=== PATIENT | female | born 1970 | race Caucasian/White ===

== ENCOUNTER → 2016-06-20 | Outpatient (CLI) | payer OTHER | END | disposition disaster alternative care site (69) | LOC: GBCOE 06-11 16:30 | DX: Z12.31 Encounter for screening mammogram for malignant neoplasm of breast (principal); Z85.3 Personal history of malignant neoplasm of breast; Z90.11 Acquired absence of right breast and nipple | CPT/HCPCS: G0202 ==

== ENCOUNTER 2016-09-24 11:43 | Emergency (ER) | payer OTHER ==
--- NOTE | ~2016-09-24 | ENPV ---
Vascular Lower Extremities DVT Study Procedure Demographics Patient Name YOVANA MARTIN Date of Study 09/24/2016 Patient Number [id number] Gender Female Date of 1970 Age 46 Visit Number [id number] Height Accession Number [id number] Weight Room Number BSA BMI Referring Terence Shah MD Interpreting Bogdan Antonio MD Physician Physician Physician Beverly Rodriguez Can Dragger Physician LINDA Senior Tax Analyst Priyank Anaya BS, RT Conclusions Summary No evidence of deep vein thrombosis or superficial thrombophlebitis in the left lower extremity . Procedure Type of Study: Veins:Lower Extremities DVT Study, Lower Extremity Left. Indications for Study:Swelling of Limb. Patient Status:STAT. Study Location:ER. Technical Quality:Adequate visualization. - Preliminary reported to:Hunter Muse PA-C. Velocities are measured in cm/s ; Diameters are measured in cm Right Lower Extremities DVT Study Measurements Right 2D and Doppler Measurements + + + + +------+------+ + !Location !Visualized!Compressibility!Thrombosis!Signal!Reflux!Reflux ! ! ! ! ! ! ! !(sec) ! + + + + +------+------+ + !Common !Yes !Yes !None !Phasic! ! ! !Femoral ! ! ! ! ! ! ! + + + + +------+------+ + Left Lower Extremities DVT Study Measurements Left 2D and Doppler Measurements + + + + +------+------+ + !Location !Visualized!Compressibility!Thrombosis!Signal!Reflux!Reflux ! ! ! ! ! ! ! !(sec) ! + + + + +------+------+ + !GSV Thigh !Yes !Yes !None !Phasic!No ! ! + + + + +------+------+ + !Common !Yes !Yes !None !Phasic!No ! ! !Femoral ! ! ! ! ! ! ! + + + + +------+------+ + !Prox !Yes !Yes !None !Phasic!No ! ! !Femoral ! ! ! ! ! ! ! + + + + +------+------+ + !Mid Femoral!Yes !Yes !None !Phasic!No ! ! + + + + +------+------+ + !Dist !Yes !Yes !None !Phasic!No ! ! !Femoral ! ! ! ! ! ! ! + + + + +------+------+ + !Popliteal !Yes !Yes !None !Phasic!No ! ! + + + + +------+------+ + !Gastroc !Yes !Yes !None !Phasic!No ! ! + + + + +------+------+ + !PTV !Yes !Yes !None !Phasic!No ! ! + + + + +------+------+ + !Peroneal !Yes !Yes !None !Phasic!No ! ! + + + + +------+------+ + Signature dtt: LUIS NGUYEN dtd: 09/24/16 1234 Physician Self Edit
--- NOTE | ~2016-09-24 | ER ---
PATIENT'S NAME: YOVANA MARTIN [facility] AGE: 46 Y [address] ROOM: [place] [id number] LOCATION: [facility] ADMIT DATE: 09/24/2016 ER/Outpatient Report DISCHARGE DATE: 09/24/2016 FAMILY PHYSICIAN: Mercy Peres MD ATTENDING PHYSICIAN: Pablo Pratt SEEN AT: 1200 hours. HISTORY OF PRESENT ILLNESS: The patient is 46-year-old female, presents with some pain involving her left ankle some swelling of her lower leg. The patient said that she has noted this over the last month. She denied any injuries. MEDICAL HISTORY: ALLERGIES: MORPHINE. CURRENT MEDICATIONS: See her copied list which was reviewed. MEDICAL HISTORY: Includes history of breast cancer, degenerative disc disease, Crohn disease. SURGERIES: She has had carpal tunnel release, hysterectomy, bowel resection. SOCIAL HISTORY: Denies tobacco use. Drugs, marijuana daily. REVIEW OF SYSTEMS: GENERAL: No fevers or chills over the last 48 hours. HEAD AND EENT: No recent headaches. RESPIRATORY: No shortness of breath. No chest pain or cough. GASTROINTESTINAL: Denies any nausea or vomiting. MUSCULOSKELETAL: Includes swelling pain involving her left ankle. PHYSICAL EXAMINATION: VITAL SIGNS: Her blood pressure was 163/73, temp is 98.1, respiratory rate 16, pulse 102, O2 saturations 94%. GENERAL APPEARANCE: Cooperative, in no obvious distress. RESPIRATORY: Lungs sound clear. HEART: Rhythm appeared regular. No murmur. EXTREMITIES: Exam of her left ankle shows some swelling and tenderness of PATIENT'S NAME: YOVANA MARTIN [facility] AGE: 46 Y [address] ROOM: [place] [address] LOCATION: [facility] ADMIT DATE: 09/24/2016 ER/Outpatient Report DISCHARGE DATE: 09/24/2016 FAMILY PHYSICIAN: Mercy Peres MD ATTENDING PHYSICIAN: Pablo Pratt posterior calf. Vascular Doppler study of her leg was done which showed no DVT. SKIN: On her left heel, there was a crack that was very dirty with some erythema involving the area around her ankle. ASSESSMENT: Possible cellulitis of left lower leg. PLAN: Keflex 500 q.i.d., elevate above the heart as much as possible. Advised to wash her heel twice a day with soap and water. Recommend use of wearing clean socks, and follow up with Dr. Peres on . GREG SEBASTIAN FOR DO RHINA MARMOLEJO/modl /[id number] d: 10/08/16 1538 t: 10/14/16 1009, OUTPATIENT REPORT
[2016-09-24 12:58] LABS: BASOPHIL % 0.3 %; EOSINOPHIL # 0.3 K/uL (0.0-0.5); EOSINOPHIL % 4.3 %; HEMATOCRIT 40.3 % (33.0-46.0); HEMOGLOBIN 12.4 g/dL (10.0-15.0); IMMATURE GRANULOCYTE # 0.1 K/uL (0.0-0.3); IMMATURE GRANULOCYTE % 1.4 %; LYMPHOCYTE # 1.5 K/uL (0.8-4.0); LYMPHOCYTE % 25.4 %; MCH 27.6 pg (27.0-34.0); MCHC 30.8 gm/dL (32.0-36.5); MCV 89.6 fl (83.0-98.0); MONOCYTE # 0.5 K/uL (0.0-1.0); MONOCYTE % 8.7 %; MPV 8.5 fl (9.4-12.4); NEUTROPHIL # (ANC) 3.5 K/uL (1.8-7.8); NEUTROPHIL % 59.9 %; NRBC % 0 /100WBC (0-0.00); PLATELET COUNT 230 K/uL (150-450); RDW-CV 13.6 % (11.9-14.6); WBC 5.8 K/uL (4.0-11.0)
[2016-09-24 13:23] LABS: ALBUMIN 3.3 gm/dL (3.5-5.0); ALK PHOS 96 IU/L (33-138); ALT 49 IU/L (12-78); ANION GAP 8.6 (10.0-19.0); AST 30 IU/L (10-40); BLOOD UREA NITROGEN 12 mg/dL (6-24); CALCIUM 8.9 mg/dL (8.5-10.5); CHLORIDE 108 mMol/L (96-110); CO2 28 mMol/L (22-32); CREATININE 0.8 mg/dL (0.5-1.1); ESTIMATED GFR (MDRD EQUATION) > 60; POTASSIUM 3.6 mMol/L (3.7-5.1); SODIUM 141 mMol/L (135-145); TOTAL BILIRUBIN 0.4 mg/dL (0.0-1.5); TOTAL PROTEIN 6.7 g/dL (6.0-8.4)
== END 2016-09-24 13:48 | disposition disaster alternative care site (69) ==
LOC: GMED 11:43
PROVIDERS: Emergency Medicine
DX: M25.472 Effusion, left ankle (principal); C50.919 Malignant neoplasm of unspecified site of unspecified female breast; Z88.5 Allergy status to narcotic agent; Z90.710 Acquired absence of both cervix and uterus; Z90.49 Acquired absence of other specified parts of digestive tract; Z79.899 Other long term (current) drug therapy

== ENCOUNTER → 2016-09-28 | Outpatient (CLI) | payer OTHER | END | disposition disaster alternative care site (69) | LOC: GLAB 13:00 → GRAD 13:33 | DX: Z08 Encounter for follow-up examination after completed treatment for malignant neoplasm (principal); K76.0 Fatty (change of) liver, not elsewhere classified; Z85.3 Personal history of malignant neoplasm of breast | CPT/HCPCS: Q9967 ==